=== PATIENT | female | born 1950 | race Caucasian/White ===

== ENCOUNTER 2021-01-25 07:16 | Observation (INO) ==
[2021-01-25] MEDS ORDERED: ASPIRIN 81 MG CHEW PO STA (07:36)
--- NOTE | 2021-01-25 07:40 | Emergency Department Note ---
Impression & Plan GARCIA (dyspnea on exertion), Exertional chest pain ED Provider Note Name: DIEGO TAMEZ Age: 70 Sex: F Arrives Via: Walk-In Informant: Patient ED Provider: Alec Fry MD Chief Complaint: Chest Pain Impression: As Per Impressions above Medical Decision Making: Pleasant 70 yr old female without PMH though extensive family CAD history, arrives for evaluation of 2 days chest pain and dyspnea on exertion with positive troponin at Outpatient clinic yesterday. Feeling well now without complaints. EKG without acute ischemia, no shortness of breath and appears well. Vitals mild tachy otherwise OK. CXR clear, labs unremarkable, including trop which is negative. I do not feel this is dissection nor PE at this time. Given ASA for cardiac protection and hospitalist consulted given history, age and elevated troponin yesterday. Prior Medical Record and Triage/Nursing Notes reviewed by Me Additional history obtained from chart Differentials:Cardiac ischemia, aortic dissection, pulmonary embolism, pneumothorax, pneumonia, pericarditis, myocarditis, esophageal rupture, GERD, cholecystitis, pancreatitis, musculoskeletal, as well as other pathologies. Vital Signs: reviewed and remarkable for HTN Interventions: saline lock, asa 324mg po Labs:Reviewed and remarkable for no significant abnormalities Imaging:X ray results are stated below per my interpretation: Chest: 1 view: No infiltrate, no effusion, normal cardiac border. EKG:Per My Interpretation: Indication Chest Pain: Sinus 78 bpm, qtc 419 with PACs. No Ischemia. Compared to EKG 10/03/15, no significant changes. Cardiac/Tele Monitoring: Cardiac Monitoring: An Order was placed for continuous cardiac monitoring. The monitor shows a rate of 70 with a normal sinus rhythm. Consults:Dr Agustin Darden Hospitalist Plan: Disposition:Hospitalization. Condition: Good History of Present Illness:70 yr old female arrives for evaluation of chest pains. Patient notes she was walking 2 days ago and started having chest tightness. Notes assoicated diaphoresis, palpitations, weakness, and near syncope. No shortness of breath, nausea, vomiting, leg swelling, rashes, abdominal pain, back pain, radiation of pain, fevers, chills, nor other symptoms. No falls, trauma, injuries. No medications taken for this. Exertion makes worse, rest makes better. Stress Test 2019 was reported normal. No history heart cath. Father with CAD starting age 34yrs. Patient had labs at PCP office yesterday which were remarkable for positive troponin. Patient states she feels well currently sitting in bed. ROS: See above HPI for pertinent positives & negatives. A total of 10 systems reviewed and were otherwise negative. 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 EYES: No scleral icterus, unremarkable pupils. ENT: Mucous membranes moist, no nasal congestion. NECK: No masses appreciated, nomeningismus, trachea is midline. RESPIRATORY: No dyspnea. Clear to auscultation and equal bilaterally. No wheeze, no rhonchi. CARDIOVASCULAR: Regular rate and rhythm.No murmurs, rubs, gallops appreciated. GASTROINTESTINAL: Abdomen soft, non-tender, no peritonitis.Bowel sounds positive.No masses appreciated. BACK: No midline tenderness, no CVA tenderness EXTREMITIES: Normal motion all extremities, no cyanosis, no edema. NEUROLOGIC: Alert and oriented, no acute motor or sensory deficits, no focal weakness, cranial nerves grossly intact. SKIN: No rash, no jaundice, no diaphoresis. PSYCH: Appropriate GCS: 15 ED Course: Times/Reassessments: Stable, feeling well no distress Alec Fry MD Past Med/Surg History Medical History Anxiety Chronic sinusitis Diverticulitis Surgical History H/O section History of appendectomy Performed during right colectomy History of cholecystectomy Performed during right colectomy S/P colon resection Right colectomy secondary to diverticulitis Family History Father Coronary heart disease CABG in 70s AAA (abdominal aortic aneurysm) Mother Throat cancer Sister Diabetes Social History Smoking Status: Never smoker Second Hand Exposure: Yes; Hx Alcohol Use: Yes Alcohol type Comment: very rare Alcohol Intake Frequency: Never Hx Substance Use: No Preferred Language: Lao Communication Ability: Effective marital status: current occupational status: retired Feels Safe at Home: Yes Allergies Allergies Allergy/AdvReac Type Severity Reaction Status Date / Time bacitracin Allergy Intermediate SEVERE Verified 01/25/21 08:51 SWELLING neomycin Allergy Intermediate SEVERE Verified 01/25/21 08:51 SWELLING polymyxin B Allergy Intermediate SEVERE Verified 01/25/21 08:51 SWELLING aspirin Allergy Unknown TINGLES Unverified 01/25/21 08:51 ibuprofen Allergy Unknown TINGLES Unverified 01/25/21 08:51 Home Meds Home Medications Medication Instructions Recorded Confirmed calcium carbonate 600 mg (1,500 1 tab PO QAM 01/25/21 01/25/21 mg)-vitamin D3 200 unit tablet (Calcium 600 + D(3)) fluticasone propionate 50 2 spray INTRANASAL DAILY PRN 01/25/21 01/25/21 mcg/actuation nasal spray,suspension [id number] 0.4 mg-calcium 162 1 tab PO QAM 01/25/21 01/25/21 mg-iron 18 im-[id number]-[id number] tablet omeprazole 10 mg capsule,delayed 10 mg PO DAILY PRN 01/25/21 01/25/21 release Previous Rx's Medication Instructions Recorded lisinopril 10 mg tablet 10 mg PO DAILY #14 tab 01/25/21 Results & Data (ED) Vital Signs Vital Signs - 24 hr 01/25/21 07:19 01/25/21 08:09 Temperature 36.7 C Temperature Source Temporal Artery Scan Pulse Rate 94 H Pulse Rate [Apical] 86 Respiratory Rate 18 18 Respiratory Effort / Characteristics Non-Labored Spontaneous Respiratory Depth Normal Respiratory Pattern Regular Blood Pressure 153/95 H Blood Pressure [Right Arm] 178/90 H Blood Pressure Mean 114 Blood Pressure Mean [Right Arm] 119 Blood Pressure Position Sitting Pulse Oximetry 98 98 Oxygen Delivery Method Room Air Room Air Sepsis Recent Fever Within 48 Hours No Sepsis New/Unexplained Change in Mental Status No Sepsis Action Taken by Nursing No Action Required Laboratory Data Result diagrams: 01/25/21 08:15 01/25/21 08:15 Lab Results 01/25/21 01/25/21 01/25/21 Range/Units 08:09 08:09 08:15 WBC 6.97 (4.8-10.8) K/uL RBC 4.67 (4.2-5.4) M/uL Hgb 14.5 (12.0-16.0) g/dL Hct 43.2 (37-47) % MCV 92.5 (80-100) fL MCH 31.0 (25-34) pg MCHC 33.6 (32-36) g/dL RDW Std Deviation 45.3 (36.4-46.3) fL RDW Coeff of Jeimy 13.4 (11.5-14.5) % Plt Count 158 (130-400) K/uL MPV 9.3 (7.4-10.4) fL Immature Gran % (Auto) 0.1 % Neut % (Auto) 81.3 % Lymph % (Auto) 12.8 % [place] % (Auto) 4.9 % Eos % (Auto) 0.6 % Baso % (Auto) 0.3 % Neut # (Auto) 5.67 (1.4-6.5) K/uL Lymph # (Auto) 0.89 L (1.2-3.4) K/uL [place] # (Auto) 0.34 (0.11-0.59) K/uL Eos # (Auto) 0.04 (0-0.5) K/uL Baso # (Auto) 0.02 (0-0.2) K/uL Immature Gran # (Auto) 0.01 (0.00-0.02) K/uL Sodium (136-145) mmol/L Potassium (3.5-5.1) mmol/L Chloride (98-107) mmol/L Carbon Dioxide (21-32) mmol/L Anion Gap (3-11) BUN (7-18) mg/dl Creatinine (0.6-1.2) mg/dl Est Cr Clr Drug Dosing ml/min Est GFR ( Amer) ml/min Est GFR (Non-Af Amer) ml/min BUN/Creatinine Ratio (10-20) Glucose (70-99) mg/dl Calcium (8.5-10.1) mg/dl Total Bilirubin (0.2-1) mg/dl Direct Bilirubin (0-0.2) mg/dl AST (15-37) U/L ALT (12-78) U/L Alkaline Phosphatase (45-117) U/L Troponin I (0-0.045) ng/ml Total Protein (6.4-8.2) gm/dl Albumin (3.4-5.0) gm/dl COVID-19 Eval Order Covid19 at [facility] SARS-CoV-2 (PCR) NEGATIVE (Negative) 01/25/21 Range/Units 08:15 WBC (4.8-10.8) K/uL RBC (4.2-5.4) M/uL Hgb (12.0-16.0) g/dL Hct (37-47) % MCV (80-100) fL MCH (25-34) pg MCHC (32-36) g/dL RDW Std Deviation (36.4-46.3) fL RDW Coeff of Jeimy (11.5-14.5) % Plt Count (130-400) K/uL MPV (7.4-10.4) fL Immature Gran % (Auto) % Neut % (Auto) % Lymph % (Auto) % [place] % (Auto) % Eos % (Auto) % Baso % (Auto) % Neut # (Auto) (1.4-6.5) K/uL Lymph # (Auto) (1.2-3.4) K/uL [place] # (Auto) (0.11-0.59) K/uL Eos # (Auto) (0-0.5) K/uL Baso # (Auto) (0-0.2) K/uL Immature Gran # (Auto) (0.00-0.02) K/uL Sodium 140 (136-145) mmol/L Potassium 3.3 L (3.5-5.1) mmol/L Chloride 108 H (98-107) mmol/L Carbon Dioxide 27 (21-32) mmol/L Anion Gap 5.0 (3-11) BUN 26 H (7-18) mg/dl Creatinine 0.87 (0.6-1.2) mg/dl Est Cr Clr Drug Dosing 60.2 ml/min Est GFR ( Amer) 79.3 ml/min Est GFR (Non-Af Amer) 68.5 ml/min BUN/Creatinine Ratio 30.4 H (10-20) Glucose 109 H (70-99) mg/dl Calcium 9.2 (8.5-10.1) mg/dl Total Bilirubin 0.4 (0.2-1) mg/dl Direct Bilirubin < 0.1 (0-0.2) mg/dl AST 24 (15-37) U/L ALT 25 (12-78) U/L Alkaline Phosphatase 60 (45-117) U/L Troponin I < 0.015 (0-0.045) ng/ml Total Protein 8.1 (6.4-8.2) gm/dl Albumin 3.9 (3.4-5.0) gm/dl COVID-19 Eval Order SARS-CoV-2 (PCR) (Negative) Administered Medications Discontinued Medications Aspirin (Aspirin 81 Mg Chew) 324 mg PO NOW STA Stop: 01/25/21 07:37 Last Admin: 01/25/21 08:33 Dose: 324 mg Documented by: [id number] Ioversol (Optiray 320 125ml) 119 ml IV ONCE ONE Stop: 01/25/21 14:19 Last Admin: 01/25/21 14:19 Dose: 119 ml Documented by: [id number] Lisinopril (Lisinopril 5 Mg Tab) 10 mg PO NOW STA Stop: 01/25/21 13:36 Last Admin: 01/25/21 14:53 Dose: 10 mg Documented by: [id number] Potassium Chloride (Potassium Chloride Crtab 20 Meq Tabcr) 40 meq PO NOW STA Stop: 01/25/21 10:20 Last Admin: 01/25/21 11:14 Dose: 40 meq Documented by: [id number] Imaging Data Radiologist's Impression: Chest X-Ray 01/25/21 07:36 XR chest 1V portable HISTORY: Atypical chest pain. Palpitations. COMPARISON: Chest 10/03/2015. FINDINGS: Small linear density at the left lung base favors atelectasis or scarring. Otherwise, the lungs are clear. The heart is normal in size. No pleural effusions. No pneumothorax. IMPRESSION: No acute process. ACT 112: Negative or not required by law. Electronically signed by: Yohan Hernandez M.D. 01/25/2021 7:57 AM Discharge Plan Visit Data Chief Complaint: Cardiac Assessment Stated Complaint: NOT FEELING WELL,HEART ISSUES,ELEVATED ENZYMES ED Provider: Alec Fry Discharge Problem: GARCIA (dyspnea on exertion), Exertional chest pain Condition: Good
--- NOTE | 2021-01-25 07:58 | XRay Report ---
XR chest 1V portable HISTORY: Atypical chest pain. Palpitations. COMPARISON: Chest 10/03/2015. FINDINGS: Small linear density at the left lung base favors atelectasis or scarring. Otherwise, the l ungs are clear. The heart is normal in size. No pleural effusions. No pneumothorax. IMPRESSION: No acute process. ACT 112: Negative or not required by law. Electronically signed by: Yohan Hernandez M.D. 01/25/2021 7:57 AM
[2021-01-25 08:32] LABS: Basophils # (auto) 0.02 K/uL (0-0.2); Basophils % (auto) 0.3 %; Eosinophils # (auto) 0.04 K/uL (0-0.5); Eosinophils % (auto) 0.6 %; Hematocrit (blood only) 43.2 % (37-47); Hemoglobin 14.5 g/dL (12.0-16.0); Immature Granulocytes # (auto) 0.01 K/uL (0.00-0.02); Immature Granulocytes % (auto) 0.1 %; Lymphocytes # (auto) 0.89 K/uL (1.2-3.4); Lymphocytes % (auto) 12.8 %; Mean Corpuscular Hgb Conc 33.6 g/dL (32-36); Mean Corpuscular Volume 92.5 fL (80-100); Mean Platelet Volume 9.3 fL (7.4-10.4); Monocytes # (auto) 0.34 K/uL (0.11-0.59); Monocytes % (auto) 4.9 %; Neutrophils # (auto) 5.67 K/uL (1.4-6.5); Neutrophils % (auto) 81.3 %; Platelet Count 158 K/uL (130-400); RDW Coefficient of Variation 13.4 % (11.5-14.5); RDW Standard Deviation 45.3 fL (36.4-46.3); Red Blood Count 4.67 M/uL (4.2-5.4); White Blood Count 6.97 K/uL (4.8-10.8)
[2021-01-25 08:51] LABS: Alanine Aminotransferase 25 U/L (12-78); Albumin Level 3.9 gm/dl (3.4-5.0); Aspartate Aminotransferase 24 U/L (15-37); BUN Creatinine Ratio 30.4 (10-20); Bilirubin Direct < 0.1 mg/dl (0-0.2); Blood Urea Nitrogen 26 mg/dl (7-18); Calcium 9.2 mg/dl (8.5-10.1); Carbon Dioxide 27 mmol/L (21-32); Chloride 108 mmol/L (98-107); Creatinine Clr Calc Pharmacy 60.2 ml/min; Est GFR (African American) 79.3 ml/min; Est GFR (Non-African American) 68.5 ml/min; Glucose 109 mg/dl (70-99); Potassium 3.3 mmol/L (3.5-5.1); Sodium 140 mmol/L (136-145)
[2021-01-25 08:58] LABS: Alkaline Phosphatase 60 U/L (45-117); Bilirubin,Total 0.4 mg/dl (0.2-1); Total Protein 8.1 gm/dl (6.4-8.2); Troponin I < 0.015 ng/ml (0-0.045)
--- NOTE | 2021-01-25 10:15 | History & Physical Report ---
Date of Service January 25, 2021 Assessment & Plan (1) Left chest pressure: (2) GARCIA (dyspnea on exertion): (3) Elevated blood pressure reading: (4) Hypokalemia: Plan: This is a 70-year-old female who has significant past medical history of situational elevated blood pressure, chronic sinusitis, anxiety, diverticulosis with history of right colectomy who presents to ED secondary to chest pain and dyspnea on exertion on and off x2 days. Pt w/o significant risk factors for CAD, +FH; however in father and not until 70s and he was a smoker. Her blood pressure is elevated in ED today, for my eval it was 152/81, 141/80 and 151/80. She has a blood pressure cuff at home which she continues to monitor her blood pressure. Her blood pressure has been variable at home running from 130 systolic to 190 systolic. Has been variable in clinic as well but not yet st arted on antihypertensive. Left chest pressure GARCIA admit to tele under observation EKG, trop WNL pt had elevated troponin T in clinic yesterday consult cardiology for eval for stress test, last 2019, WNL EF 55-60%, grade 1 diastolic dysfunction Stress test negative for inducible ischemia Ddimer elevated, CTA chest and doppler negativeo lyme negative, anaplasma pending cycle trops fasting lipid panel, a1c to remain hospitalized overnight for iv hydration in setting of contrast, d/c in a.m. Elevated ddimer cta and doppler negative Hypertension Pt BP readings at home 130s-150s, clinic variable 120s-150 anxiety may be contributing will start low dose lisinopril 10mg daily, encourage close BP monitor will need repeat bmp in 1 week for monitor renal function Hypokalemia K 3.3 replace monitor DVT ppx: SQ lovenox Dispo: obs tele, d/c to home in a.m. PCP: Asiya FULL CODE PT was seen and examined in collaboration with Dr. Velez, please see addendum History of Present Illness Chief Complaint: Chest pain and dyspnea on exertion off and on x2 days. Primary Care Provider: Oswald Braden DO This is a 70-year-old female who has significant past medical history of situational elevated blood pressure, chronic sinusitis, anxiety, diverticulosis with history of right colectomy who presents to ED secondary to chest pain and dyspnea on exertion on and off x2 days. Symptoms initially started on Saturday. She went for a 3.1 mile walk. During the walk she started to feel unwell and fatigued. It required her to sit and rest during her walk which was unusual. She also felt sweaty. At the end of her walk she developed left-sided chest pressure that lasted for a few minutes and resolved with rest. Chest pressure was nonradiating, but was associated with mild shortness of breath and sweating. She denies feeling nauseated. Symptoms resolved but she continued to just feel unwell and her body felt, "tired." Yesterday she saw her PCP and had blood work drawn. Results returned this morning which revealed an elevated troponin T and she was referred to the ER for further evaluation. She states yesterday when at [facility] she was walking up the stairs for lab work and she became extremely short of breath, sweaty and felt like her heart was racing. It was very unusual for her to become short of breath after climbing 1 flight of stairs. She was able to do her gardening yesterday without any difficulty. Currently she feels at her baseline except for overall feeling fatigued. She denies any recent illness and is vaccinated for COVID-19. She denies fever, chills, sweats, lightheadedness, dizziness, syncope, cough, hemoptysis, URI symptoms, nausea, vomiting, abdominal pain. She did have an episode of loose stool yesterday but otherwise denies jessica diarrhea. She denies any prior history of high cholesterol, diabetes or history of heart disease. She did have a stress test in 2019 which was unremarkable. She denies recent travel or known tick/insect bite. She feels she is note in good shape, but does walk 3.1 miles ~ twice weekly. She did states her father was diagnosed with cardiac, "insufficiency," in his late 30s. When he was in his 70s he ended up undergoing triple bypass as well as an abdominal aortic aneurysm repair. He was a smoker. She denies any tobacco abuse, but admits to passive smoking exposure. She admits to very minimal alcohol use. 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 In ED patient made hemodynamically stable although her blood pressure was elevated. During my evaluation her blood pressure was 152/81. Her CBC and CMP was generally unremarkable except for mild lymphopenia, low potassium at 3.8, elevated BUN at 26 and glucose at 109. Allergies Allergy/AdvReac Type Severity Reaction Status Date / Time bacitracin Allergy Intermediate SEVERE Verified 01/25/21 08:51 SWELLING neomycin Allergy Intermediate SEVERE Verified 01/25/21 08:51 SWELLING polymyxin B Allergy Intermediate SEVERE Verified 01/25/21 08:51 SWELLING aspirin Allergy Unknown TINGLES Unverified 01/25/21 08:51 ibuprofen Allergy Unknown TINGLES Unverified 01/25/21 08:51 Home Medications Medication Instructions Recorded Confirmed Type calcium carbonate 600 mg (1,500 1 tab PO QAM 01/25/21 01/25/21 History mg)-vitamin D3 200 unit tablet (Calcium 600 + D(3)) fluticasone propionate 50 2 spray INTRANASAL DAILY PRN 01/25/21 01/25/21 History mcg/actuation nasal spray,suspension lisinopril 10 mg tablet 10 mg PO DAILY #14 tab 01/25/21 Rx [id number] 0.4 mg-calcium 162 1 tab PO QAM 01/25/21 01/25/21 History mg-iron 18 [id number] tablet omeprazole 10 mg capsule,delayed 10 mg PO DAILY PRN 01/25/21 01/25/21 History release Past Med/Surg History Medical History Anxiety Chronic sinusitis Diverticulitis Surgical History H/O section History of appendectomy Performed during right colectomy History of cholecystectomy Performed during right colectomy S/P colon resection Right colectomy secondary to diverticulitis Family History Father Coronary heart disease CABG in 70s AAA (abdominal aortic aneurysm) Mother Throat cancer Sister Diabetes Social History Smoking Status: Never smoker Second Hand Exposure: No; Do You Dip or Chew Tobacco: No; Tobacco Cessation Education Requested by Patient: No Hx Alcohol Use: Yes Alcohol type Comment: very rare Alcohol Intake Frequency: Never Hx Substance Use: No Preferred Language: Venezuelan Communication Ability: Effective Braille Teacher Required: No Beliefs That Will Affect Care: None marital status: Current Living Situation: Alone current occupational status: retired Feels Safe at Home: Yes Safety Concerns: Feels Safe At This Time Assistive Devices: Glasses Review of Systems Review of Systems: All systems reviewed & are unremarkable except as noted in HPI & below Physical Exam Physical Exam: Constitutional: WD/WN, vitals as above, NAD, sitting up in bed, pleasant, conversing easily Head: Normocephalic, Atraumatic Eyes: PERRL, conjunctivae normal, anicteric sclerae ENMT: external ear and nose normal, oropharynx normal Neck: trachea midline, no thyromegaly normal visual inspection, no carotid bruits Respiratory: normal respiratory effort, lungs clear to auscultation, no wheeze, rales, rhonchi. Normal insp/exp effort, no accessory muscle use Cardiovascular: RRR, no murmur, no edema Vessels: no JVD or carotid bruit Chest: normal inspection of chest Abdomen: normal bowel sounds, soft, nontender, no hepatosplenomegaly Musculoskeletal: no cyanosis or clubbing, extremities motor strength 5/5 Skin: no rashes, warm and dry normal turgor Neurologic: PERRL, EOMI, accommodation nl, no face palsy, no dysarthria CN's II-XI intact bilaterally and moves all extremities Psychiatric: A+Ox3, euthymic affect Lymphatic: no cervical or axillary lymphadenopathy : deferred Results & Data Results & Data ([facility]) Vital Signs (Past 12 Hours) Vital Signs Temp Pulse Pulse Resp BP BP Pulse Ox 01/25/21 08:09 86 18 178/90 H 98 01/25/21 07:19 36.7 C 94 H 18 153/95 H 98 Diagnostic Findings Chest X-Ray 01/25/21 07:36 XR chest 1V portable HISTORY: Atypical chest pain. Palpitations. COMPARISON: Chest 10/03/2015. FINDINGS: Small linear density at the left lung base favors atelectasis or scarring. Otherwise, the lungs are clear. The heart is normal in size. No pleural effusions. No pneumothorax. IMPRESSION: No acute process. ACT 112: Negative or not required by law. Electronically signed by: Yohan Hernandez M.D. 01/25/2021 7:57 AM Medications Administered Medication List Discontinued Medications Aspirin (Aspirin 81 Mg Chew) 324 mg PO NOW STA Stop: 01/25/21 07:37 Last Admin: 01/25/21 08:33 Dose: 324 mg Documented by: [id number] ECG Rate (beats per minute): 78 Rhythm: normal sinus Findings: + PAC COVID-19 Results Results COVID-19 Adm Lab Results: RBC 4.67 M/uL (4.2-5.4) 01/25/21 WBC 6.97 K/uL (4.8-10.8) 01/25/21 Hgb 14.5 g/dL (12.0-16.0) 01/25/21 Hct 43.2 % (37-47) 01/25/21 Plt Count 158 K/uL (130-400) 01/25/21 Neutrophils (%) (Auto) 81.3 % 01/25/21 Lymphocytes (%) (Auto) 12.8 % 01/25/21 Monocytes # (Auto) 0.34 K/uL (0.11-0.59) 01/25/21 Eosinophils # (Auto) 0.04 K/uL (0-0.5) 01/25/21 Immature Granulocyte % (Auto) 0.1 % 01/25/21 Neutrophils # (Auto) 5.67 K/uL (1.4-6.5) 01/25/21 Lymphocytes # (Auto) 0.89 K/uL (1.2-3.4) L 01/25/21 Monocytes # (Auto) 0.34 K/uL (0.11-0.59) 01/25/21 Eosinophils # (Auto) 0.04 K/uL (0-0.5) 01/25/21 Basophils # (Auto) 0.02 K/uL (0-0.2) 01/25/21 Immature Granulocyte # (Auto) 0.01 K/uL (0.00-0.02) 01/25/21 Na 140 mmol/L (136-145) 01/25/21 K 3.3 mmol/L (3.5-5.1) L 01/25/21 Cl 108 mmol/L (98-107) H 01/25/21 CO2 27 mmol/L (21-32) 01/25/21 Anion Gap 5.0 (3-11) 01/25/21 BUN 26 mg/dl (7-18) H 01/25/21 Creatinine 0.87 mg/dl (0.6-1.2) 01/25/21 BUN/Creatinine Ratio 30.4 (10-20) H 01/25/21 Glucose Level 109 mg/dl (70-99) H 01/25/21 Ca 9.2 mg/dl (8.5-10.1) 01/25/21 Total Bilirubin 0.4 mg/dl (0.2-1) 01/25/21 Direct Bilirubin < 0.1 mg/dl (0-0.2) 01/25/21 AST/SGOT 24 U/L (15-37) 01/25/21 ALT/SGPT 25 U/L (12-78) 01/25/21 Alkaline Phosphatase 60 U/L (45-117) 01/25/21 Total Protein 8.1 gm/dl (6.4-8.2) 01/25/21 Albumin 3.9 gm/dl (3.4-5.0) 01/25/21 Troponin I < 0.015 ng/ml (0-0.045) 01/25/21 D-Dimer 1720 ug/L FEU (0-500) H* 01/25/21 COVID-19 PCR NEGATIVE (Negative) 01/25/21 Chest X-Ray 01/25/21 Code Status & VTE Plan Code Status FULL CODE VTE Prophylaxis Plan VTE Prophylaxis will be ordered: Yes Supervising Physician Co-Signing Physician Notes 70-year-old female who has significant past medical history of situational elevated blood pressure, chronic sinusitis, anxiety, diverticulosis with history of right colectomy who presents to ED 01/25 secondary to chest pain and dyspnea on exertion on and off x2 days. Patient had elevated D-dimer on presentation. Underwent CTA chest and stress echo. Both negative. We will put her on gentle normal saline hydration [renal protective for contrast exposure] with as needed blood pressure medication. Patient was also found to have elevated blood pres sure at presentation. Patient started on lisinopril. We will continue to monitor. Upon examination: GENERAL: Alert and oriented x3. NAD, on RA. HEENT: No pallor, no icterus. Pupils equal, round and reactive to light. Oral mucosa moist. NECK: No JVD, no neck masses. HEART: S1 and S2 heard. Regular rate and rhythm. Systolic murmur over the aortic area. no gallop. RESPIRATORY SYSTEM: Normal AP diameter. No accessory muscle use. No wheezing, no crackles. ABDOMEN: Soft, bowel sounds present, nontender, no distention. CENTRAL NERVOUS SYSTEM: Alert and oriented x3. No facial droop. Speech is clear. Obeys simple commands. Moves extremities. EXTREMITIES: No edema, no erythema seen. I have seen and examined the patient and have discussed the case with the provider above. I agree with the assessment and plan as stated.
[2021-01-25] MEDS ORDERED: POTASSIUM CHLORIDE CRTAB 20 MEQ TABCR PO STA (10:19)
[2021-01-25 11:08] LABS: D Dimer 1720 ug/L FEU (0-500)
[2021-01-25 11:54] LABS: Lyme Ab IgG w/WB Rflx Negative (Negative); Lyme Ab IgM w/WB Rflx Negative (Negative)
--- NOTE | 2021-01-25 13:21 | Cardiology Consultation ---
Date of Consultation January 25, 2021 Assessment & Plan (1) Chest pain: (2) Hypertension: nonischemic exercise stress echocardiogram hypertensive bp response to exercise no cardiac source for discomfort found BP treatment has already been started and I recommend she follow up with PCP to further monitor and treat no further cardiac testing necessary ok to d/c to home from cardiac standpoint History of Present Illness Reason for Consultation: Chest pain Requesting Physician: Dr. Velez Attending Physician: Rolanda Velez MD History of Present Illness It was my pleasure to see Mrs. Light in cardiac consultation today January 25, 2021. She is a very pleasant 70-year-old woman without significant cardiac history. She presented to [facility] on 01/25/2021 with complaints of chest pain and dyspnea. She states that her symptoms started approximately 2 days prior to presentation. She was on her normal walk when she started feeling well and fatigued. She had to stop and rest which is very unusual for her. At the end of her walk she developed left-sided chest pressure that lasted for several minutes and ultimately resolved with rest. This episode was associated with mild diaphoresis. She continues to feel very tired in the days afterwards and was seen by her PCP at which time a troponin level was drawn was mildly elevated and she was directed to the emergency department. Currently states that she feels tired but otherwise well. She is been significantly hypertensive since admission. Allergies Allergy/AdvReac Type Severity Reaction Status Date / Time bacitracin Allergy Intermediate SEVERE Verified 01/25/21 08:51 SWELLING neomycin Allergy Intermediate SEVERE Verified 01/25/21 08:51 SWELLING polymyxin B Allergy Intermediate SEVERE Verified 01/25/21 08:51 SWELLING aspirin Allergy Unknown TINGLES Unverified 01/25/21 08:51 ibuprofen Allergy Unknown TINGLES Unverified 01/25/21 08:51 Home Medications Medication Instructions Recorded Confirmed Type calcium carbonate 600 mg (1,500 1 tab PO QAM 01/25/21 01/25/21 History mg)-vitamin D3 200 unit tablet (Calcium 600 + D(3)) fluticasone propionate 50 2 spray INTRANASAL DAILY PRN 01/25/21 01/25/21 History mcg/actuation nasal spray,suspension lisinopril 10 mg tablet 10 mg PO DAILY #14 tab 01/25/21 Rx [id number] 0.4 mg-calcium 162 1 tab PO QAM 01/25/21 01/25/21 History mg-iron 18 [id number] tablet omeprazole 10 mg capsule,delayed 10 mg PO DAILY PRN 01/25/21 01/25/21 History release Patient History Medical History Anxiety Chronic sinusitis Diverticulitis Surgical History H/O section History of appendectomy Performed during right colectomy History of cholecystectomy Performed during right colectomy S/P colon resection Right colectomy secondary to diverticulitis Family History Father Coronary heart disease CABG in 70s AAA (abdominal aortic aneurysm) Mother Throat cancer Sister Diabetes Social History Smoking Status: Never smoker Second Hand Exposure: No; Do You Dip or Chew Tobacco: No; Tobacco Cessation Education Requested by Patient: No Hx Alcohol Use: Yes Alcohol type Comment: very rare Alcohol Intake Frequency: Never Hx Substance Use: No Preferred Language: Mongolian Communication Ability: Effective 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 No acute distress. HEENT: Normocephalic, atraumatic. Pupils equal, round and reactive to light and accommodation. Extraocular muscles are intact. Anicteric sclera. Moist mucous membranes. Neck: No JVD. No bruit. Cardiovascular: Regular. No S-4. Normal S-1 and S-2. No S-3. No murmurs, rubs or gallops. Pulmonary: Clear to auscultation bilaterally. No rales, rhonchi, or wheezing. Abdomen: Bowel sounds x 4, soft. No rebound, guarding or tenderness. No organomegaly. Extremities: No clubbing, cyanosis or edema. +2 pedal pulses bilaterally. Skin: Warm and dry. Results & Data ([facility]) Vital Signs (Past 12 Hours) Vital Signs Temp Pulse Pulse Resp BP BP Pulse Ox 01/25/21 08:09 86 18 178/90 H 98 01/25/21 07:19 36.7 C 94 H 18 153/95 H 98
[2021-01-25] MEDS ORDERED: lisinopril 5 MG TAB PO STA (13:35)
[2021-01-25] MEDS ORDERED: OPTIRAY 320 125ml IV ONE (14:18)
--- NOTE | 2021-01-25 14:18 | Ultrasound Report ---
BILATERAL LOWER EXTREMITY VENOUS DOPPLER CLINICAL HISTORY: Elevated d-dimer. COMPARISON STUDY: No previous studies for comparison. TECHNIQUE: Sonography of the deep venous system of the bilateral lower extremities was performed. Co mpression and augmentation were evaluated. FINDINGS: The bilateral common femoral, superficial femoral and popliteal veins were compressible. A ugmentation was normal. Flow was shown within the deep calf vessels. IMPRESSION: No evidence of deep venous thrombus within the bilateral lower extremities. ACT 112: Negative or not required by law. Electronically signed by: Raphael Calderon M.D. 01/25/2021 2:17 PM
--- NOTE | 2021-01-25 14:40 | CT Scan Report ---
CT ANGIOGRAPHY OF THE CHEST, PULMONARY EMBOLUS PROTOCOL CLINICAL HISTORY: Shortness of breath. Elevated d-dimer. COMPARISON STUDY: Chest CT October 03, 2015. Chest radiograph performed earlier today. TECHNIQUE: Following IV administration of 119 mL of Optiray, helical axial images of the chest were o btained utilizing the pulmonary embolus protocol. Maximal intensity projections and sagittal and cor onal reformats were viewed on an independent 3D workstation. IV contrast was administered without co mplication. Automated exposure control was utilized for the study. A dose lowering technique was ut ilized adhering to the principles of ALARA. CT DOSE: 445.59 mGycm FINDINGS: No pulmonary emboli are identified. There is no thoracic aortic dissection. Mild cardiomeg niko is present. There is no pericardial effusion. No enlarged axillary, mediastinal or hilar lymph no luann are present. There is no consolidation to suggest pneumonia. No pneumothorax or pleural effusion is noted. Multinodular thyroid gland is again noted with dominant right lobe thyroid nodule which was previously biopsied. No acute fracture or suspicious lesion is identified within visualized portions of the bony thorax. A suspected left renal cyst is partially imaged. There are multiple hepatic cyst s. IMPRESSION: 1. No pulmonary emboli identified. 2. No acute process within the chest. ACT 112: Negative or not required by law. Electronically signed by: Raphael Calderon M.D. 01/25/2021 2:39 PM
--- NOTE | 2021-01-25 14:43 | Discharge Summary ---
Date of Service January 25, 2021 Admission HPI Per Admitting Provider This is a 70-year-old female who has significant past medical history of situational elevated blood pressure, chronic sinusitis, anxiety, diverticulosis with history of right colectomy who presents to ED secondary to chest pain and dyspnea on exertion on and off x2 days. Symptoms initially started on Saturday. She went for a 3.1 mile walk. During the walk she started to feel unwell and fatigued. It required her to sit and rest during her walk which was unusual. She also felt sweaty. At the end of her walk she developed left-sided chest pressure that lasted for a few minutes and resolved with rest. Chest pressure was nonradiating, but was associated with mild shortness of breath and sweating. She denies feeling nauseated. Symptoms resolved but she continued to just feel unwell and her body felt, "tired." Yesterday she saw her PCP and had blood work drawn. Results returned this morning which revealed an elevated troponin T and she was referred to the ER for further evaluation. She states yesterday when at [facility] she was walking up the stairs for lab work and she became extremely short of breath, sweaty and felt like her heart was racing. It was very unusual for her to become short of breath after climbing 1 flight of stairs. She was able to do her gardening yesterday without any difficulty. Currently she feels at her baseline except for overall feeling fatigued. She denies any recent illness and is vaccinated for COVID-19. She denies fever, chills, sweats, lightheadedness, dizziness, syncope, cough, hemoptysis, URI symptoms, nausea, vomiting, abdominal pain. She did have an episode of loose stool yesterday but otherwise denies jessica diarrhea. She denies any prior history of high cholesterol, diabetes or history of heart disease. She did have a stress test in 2019 which was unremarkable. She denies recent travel or known tick/insect bite. She feels she is note in good shape, but does walk 3.1 miles ~ twice weekly. She did states her father was diagnosed with cardiac, "insufficiency," in his late 30s. When he was in his 70s he ended up undergoing triple bypass as well as an abdominal aortic aneurysm repair. He was a smoker. She denies any tobacco abuse, but admits to passive smoking exposure. She admits to very minimal alcohol use. 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 In ED patient made hemodynamically stable although her blood pressure was elevated. During my evaluation her blood pressure was 152/81. Her CBC and CMP was generally unremarkable except for mild lymphopenia, low potassium at 3.8, elevated BUN at 26 and glucose at 109. Admission Exam Per Admitting Provider Physical Exam: Constitutional: WD/WN, vitals as above, NAD, sitting up in bed, pleasant, conversing easily Head: Normocephalic, Atraumatic Eyes: PERRL, conjunctivae normal, anicteric sclerae ENMT: external ear and nose normal, oropharynx normal Neck: trachea midline, no thyromegaly normal visual inspection, no carotid bruits Respiratory: normal respiratory effort, lungs clear to auscultation, no wheeze, rales, rhonchi. Normal insp/exp effort, no accessory muscle use Cardiovascular: RRR, no murmur, no edema Vessels: no JVD or carotid bruit Chest: normal inspection of chest Abdomen: normal bowel sounds, soft, nontender, no hepatosplenomegaly Musculoskeletal: no cyanosis or clubbing, extremities motor strength 5/5 Skin: no rashes, warm and dry normal turgor Neurologic: PERRL, EOMI, accommodation nl, no face palsy, no dysarthria CN's II-XI intact bilaterally and moves all extremities Psychiatric: A+Ox3, euthymic affect Lymphatic: no cervical or axillary lymphadenopathy : deferred Principal Diagnosis Hypertension Hypokalemia Discharge Exam Constitutional: WD/WN, vitals as above, NAD, sitting up in bed, pleasant, conversing easily Head: Normocephalic, Atraumatic Eyes: PERRL, conjunctivae normal, anicteric sclerae ENMT: external ear and nose normal, oropharynx normal Neck: trachea midline, no thyromegaly normal visual inspection, no carotid bruits Respiratory: normal respiratory effort, lungs clear to auscultation, no wheeze, rales, rhonchi. Normal insp/exp effort, no accessory muscle use Cardiovascular: RRR, no murmur, no edema Vessels: no JVD or carotid bruit Chest: normal inspection of chest Abdomen: normal bowel sounds, soft, nontender, no hepatosplenomegaly Musculoskeletal: no cyanosis or clubbing, extremities motor strength 5/5 Skin: no rashes, warm and dry normal turgor Neurologic: PERRL, EOMI, accommodation nl, no face palsy, no dysarthria CN's II-XI intact bilaterally and moves all extremities Psychiatric: A+Ox3, euthymic affect Lymphatic: no cervical or axillary lymphadenopathy : deferred Discharge Data Allergies Allergy/AdvReac Type Severity Reaction Status Date / Time bacitracin Allergy Intermediate SEVERE Verified 01/25/21 08:51 SWELLING neomycin Allergy Intermediate SEVERE Verified 01/25/21 08:51 SWELLING polymyxin B Allergy Intermediate SEVERE Verified 01/25/21 08:51 SWELLING aspirin Allergy Unknown TINGLES Unverified 01/25/21 08:51 ibuprofen Allergy Unknown TINGLES Unverified 01/25/21 08:51 Consultations Cardiology Consult: (1) Chest pain: (2) Hypertension: nonischemic exercise stress echocardiogram hypertensive bp response to exercise no cardiac source for discomfort found BP treatment has already been started and I recommend she follow up with PCP to further monitor and treat no further cardiac testing necessary ok to d/c to home from cardiac standpoint Ordered Studies Chest X-Ray 01/25/21 07:36 XR chest 1V portable HISTORY: Atypical chest pain. Palpitations. COMPARISON: Chest 10/03/2015. FINDINGS: Small linear density at the left lung base favors atelectasis or scarring. Otherwise, the lungs are clear. The heart is normal in size. No pleural effusions. No pneumothorax. IMPRESSION: No acute process. ACT 112: Negative or not required by law. Electronically signed by: Yhoan Hernandez M.D. 01/25/2021 7:57 AM Chest CTA 01/25/21 11:32 CT ANGIOGRAPHY OF THE CHEST, PULMONARY EMBOLUS PROTOCOL CLINICAL HISTORY: Shortness of breath. Elevated d-dimer. COMPARISON STUDY: Chest CT October 03, 2015. Chest radiograph performed earlier today. TECHNIQUE: Following IV administration of 119 mL of Optiray, helical axial images of the chest were obtained utilizing the pulmonary embolus protocol. Maximal intensity projections and sagittal and coronal reformats were viewed on an independent 3D workstation. IV contrast was administered without complication. Automated exposure control was utilized for the study. A dose lowering technique was utilized adhering to the principles of ALARA. CT DOSE: 445.59 mGycm FINDINGS: No pulmonary emboli are identified. There is no thoracic aortic dissection. Mild cardiomegaly is present. There is no pericardial effusion. No enlarged axillary, mediastinal or hilar lymph nodes are present. There is no consolidation to suggest pneumonia. No pneumothorax or pleural effusion is noted. Multinodular thyroid gland is again noted with dominant right lobe thyroid nodule which was previously biopsied. No acute fracture or suspicious lesion is identified within visualized portions of the bony thorax. A suspected left renal cyst is partially imaged. There are multiple hepatic cysts. IMPRESSION: 1. No pulmonary emboli identified. 2. No acute process within the chest. ACT 112: Negative or not required by law. Electronically signed by: Raphael Calderon M.D. 01/25/2021 2:39 PM Venous Doppler Study 01/25/21 11:41 BILATERAL LOWER EXTREMITY VENOUS DOPPLER CLINICAL HISTORY: Elevated d-dimer. COMPARISON STUDY: No previous studies for comparison. TECHNIQUE: Sonography of the deep venous system of the bilateral lower extremities was performed. Compression and augmentation were evaluated. FINDINGS: The bilateral common femoral, superficial femoral and popliteal veins were compressible. Augmentation was normal. Flow was shown within the deep calf vessels. IMPRESSION: No evidence of deep venous thrombus within the bilateral lower extremities. ACT 112: Negative or not required by law. Electronically signed by: Raphael Calderon M.D. 01/25/2021 2:17 PM Hospital Course (1) Left chest pressure: (2) GARCIA (dyspnea on exertion): (3) Elevated blood pressure reading: (4) Hypokalemia: This is a 70-year-old female who has significant past medical history of situational elevated blood pressure, chronic sinusitis, anxiety, diverticulosis with history of right colectomy who presents to ED secondary to chest pain and dyspnea on exertion on and off x2 days. Pt w/o significant risk factors for CAD, +FH; however in father and not until 70s and he was a smoker. Her blood pressure is elevated in ED today, for my eval it was 152/81, 141/80 and 151/80. She has a blood pressure cuff at home which she continues to monitor her blood pressure. Her blood pressure has been variable at home running from 130 systolic to 190 systolic. Has been variable in clinic as well but not yet started on antihypertensive. She was seen and evaluated in clinic on day prior and was found to have an elevated troponin T and was referred to ED. She was admitted under hospitalist service. Cardiology was consulted and she underwent exercise stress test which was negative for inducible ischemia. She did have a hypertensive response. She remained hypertensive during hospitalization and was started on lisinopril 10 mg daily. Her potassium was low and this was replaced. She did have elevated D-dimer on 1720. A CTA of chest was performed which was negative for PE and bilateral lower extremity Doppler which was negative. She was started on lisinopril 10mg once daily for HTN. A follow up appt was made for the patient for 01/30/21 for blood pressure recheck and follow up BMP due to initiation of lisinopril. Discharge Plan Discharge Items Patient Disposition: Home - Self-Care Reason For Visit: chest pain Discharge Diagnosis: High Blood Pressure Low Potassium Condition on Discharge: Good Activity: As commented below Activity Comment: Wait until after follow up with PCP to resume physical activity Lifting: Wait until after follow-up appointment Bathing: No limitations Exercise/Sports: Wait until after follow-up appointment Driving/Machine Use: No limitations Non-emergency contact: Primary Care Provider Call non-emergency contact if: you have any medication questions, your symptoms worsen, your pain is not controlled, your pain is worsening, your pain is unusual for you, your pain is concerning for you and you have a fever Follow-up/Referrals: Oswald Braden DO [Primary Care Provider] - 01/30/21 11:20 am Diet: Regular Addtl Attending Provider Instructions: MEDICATION CHANGES: You were started on medication for high blood pressure *Lisinopril 10mg by mouth once daily SUMMARY OF TEST RESULTS/Hospitalization: You were admitted to hospital secondary to shortness of breath, fatigue, chest pressure and sweating. You underwent a stress test by our cardiology and it was negative. Your blood pressure was high during your stay as well as during your stress test. You were started on a medication to help lower your blood pressure, Lisinopril. Your potassium was low and this was replaced. A CT scan of your chest was performed Ultrasounds of your legs were performed and ruled out You were tested for Lyme disease which was negative PENDING TEST RESULTS: Anaplasma blood test for tick borne illness is pending at discharge RECOMMENDATIONS FOR FOLLOW-UP: Please follow up with your Primary Care Provider on 01/30/21 @ 11:20 a.m., please arrive 15 minutes before your scheduled appointment. Keep a log of your blood pressure & take at least twice daily. Bring this with you to your Primary Care Provider appointment. You will need a repeat BMP at your follow up appointment due to starting a new medication, lisinopril. This will recheck your kidney function and potassium. You will need a refill prescription for your new blood pressure medication, Lisinopril at your follow up appointment. If your symptoms do not resolve, worsen or becoming concerning for you please return back to ER for further evaluation. OTHER INSTRUCTIONS: Seek medical attention if you have: * temperature above 101 * chest pain or trouble breathing * abdominal pain, nausea, vomiting * diarrhea, dark stools or bloody stools * any unanswered questions or concerns Call 911 if symptoms are severe. Please take good care of yourself. It has been a pleasure taking care of you. Please take care of yourself. If you have any questions regarding your recent hospitalization please contact [facility] and request Katalina Mongeist @ [phone]. Becky Galindo PA-C Pending Studies at Discharge: Yes Studies:: Anaplasma serology pending at discharge Stand-Alone Forms: My [facility], Smoking Cessation Medications and DC Order Prescriptions: New lisinopril 10 mg tablet 10 mg PO DAILY Qty: 14 RF: 0 No Action calcium carbonate-vitamin D3 [Calcium 600 + D(3)] 600 mg(1,500mg) -200 unit Tablet 1 tab PO QAM RF: 0 omeprazole [Prilosec] 10 mg Capsule,Delayed Release(Dr/Ec) 10 mg PO DAILY PRN (Reason: gastric upset) RF: 0 fluticasone propionate [Flonase] 50 mcg/actuation [place],Suspension 2 spray INTRANASAL DAILY PRN (Reason: Allergy Symptoms) RF: 0 Centrum 0.4-162-18 mg Tablet 1 tab PO QAM RF: 0 Krames/Other Patient Handouts: ED Hypertension, New (Begin Treatment) Admission Data Admit Date/Time: 01/25/21 09:26 Attending Provider: Rolanda Velez Admit Provider: Rolanda Velez Primary Care Provider: Oswald Braden Other Providers: Rolanda Velez ; Joel Juarez
[2021-01-25] MEDS ORDERED: LABETALOL HCL IV 5 MG/ML 20ML IV PRN (14:52)
[2021-01-25] MEDS ORDERED: SODIUM CHLORIDE 0.9% 500 ML IV SCH ×2 (15:00→18:35)
[2021-01-25] MEDS ORDERED: POLYETHYLENE (MIRALAX) 17 GM PACK PO PRN (18:35)
[2021-01-25] MEDS ORDERED: ALUMINUM/MAGNESIUM SUSP 30 ML UDC PO PRN (18:35)
[2021-01-25] MEDS ORDERED: MAGNESIUM HYDROXIDE SUSP 30 ML UDC PO PRN (18:35)
[2021-01-25] MEDS ORDERED: FLUTICASONE PROPIONATE NA SPR 16 GM BTL PRN (18:35)
[2021-01-25] MEDS ORDERED: NITROGLYCERIN SL 0.4 MG/TAB TAB SL PRN (18:35)
[2021-01-25] MEDS ORDERED: ONDANSETRON INJ 2 MG/ML 2 ML VIAL IV PRN (18:35)
[2021-01-25] MEDS ORDERED: ACETAMINOPHEN 325 MG TAB PO PRN (18:35)
[2021-01-25] MEDS ORDERED: PANTOprazole 40 MG TAB PO PRN (18:43)
[2021-01-25] MEDS ORDERED: ENOXAPARIN INJ 40 MG/0.4 ML SYR SQ SCH (21:00)
[2021-01-26 00:36] LABS: Appearance Urine Clear (Clear); Bilirubin Urine Negative (Negative); Blood Urine Negative (Negative); Color Urine Yellow; Glucose Urine UA Negative (Negative); Ketones Urine Trace (Negative); Leukocyte Esterase Urine Negative (Negative); Nitrite Urine Negative (Negative); Protein Urine Negative (Negative); Specific Gravity Urine > 1.045 (1.000-1.030); Urobilinogen Urine Negative (Negative)
[2021-01-26 07:27] LABS: Hematocrit (blood only) 40.5 % (37-47); Hemoglobin 13.4 g/dL (12.0-16.0); Mean Corpuscular Hemoglobin 30.7 pg (25-34); Mean Corpuscular Hgb Conc 33.1 g/dL (32-36); Mean Corpuscular Volume 92.9 fL (80-100); Mean Platelet Volume 9.2 fL (7.4-10.4); Platelet Count 157 K/uL (130-400); RDW Coefficient of Variation 13.6 % (11.5-14.5); RDW Standard Deviation 46.5 fL (36.4-46.3); Red Blood Count 4.36 M/uL (4.2-5.4)
[2021-01-26 08:38] LABS: BUN Creatinine Ratio 29.1 (10-20); Calcium 8.9 mg/dl (8.5-10.1); Creatinine Clr Calc Pharmacy 66.3 ml/min; Est GFR (African American) 89.1 ml/min; Est GFR (Non-African American) 76.9 ml/min; Magnesium 2.3 mg/dl (1.8-2.4); Potassium 4.1 mmol/L (3.5-5.1)
[2021-01-26] MEDS ORDERED: CEROVITE ADV FORMULA TAB PO SCH (09:00)
[2021-01-26] MEDS ORDERED: CALCIUM 600MG + VIT D 400 IU TAB PO SCH (09:00)
[2021-01-26] MEDS ORDERED: lisinopril 10 MG TAB PO SCH (09:00)
[2021-01-26 09:36] LABS: Estimated Average Glucose 108 mg/dl; Hemoglobin A1C 5.4 % (4.5-5.6)
--- NOTE | 2021-01-26 10:42 | Cardiology Progress Note ---
Date of Service January 26, 2021 Assessment & Plan (1) Chest pain: (2) Hypertension: Plan: nonischemic exercise stress echocardiogram hypertensive bp response to exercise no cardiac source for discomfort found BP treatment has already been started and I recommend she follow up with PCP to further monitor and treat pt to keep bp diary discharge with lisinopril 10 mg daily, bmp in 1 week no further cardiac testing necessary ok to d/c to home from cardiac standpoint Admission and Anticipated Discharge Date Admission Date: January 25, 2021 Subjective Pt seen and examined, chart reviewed. No complaints. Anxious for discharge. tele reviewed: sinus rhythm without arrhythmia Review of Systems Review of Systems: All systems reviewed & are unremarkable except as noted in HPI & below Physical Exam Physical Exam: Physical Exam: General: Awake, alert and oriented x 3. No acute distress. HEENT: Normocephalic, atraumatic. Pupils equal, round and reactive to light and accommodation. Extraocular muscles are intact. Anicteric sclera. Moist mucous membranes. Neck: No JVD. No bruit. Cardiovascular: Regular. No S-4. Normal S-1 and S-2. No S-3. No murmurs, rubs or gallops. Pulmonary: Clear to auscultation bilaterally. No rales, rhonchi, or wheezing. Abdomen: Bowel sounds x 4, soft. No rebound, guarding or tenderness. No organomegaly. Extremities: No clubbing, cyanosis or edema. +2 pedal pulses bilaterally. Skin: Warm and dry. Results & Data ([facility]) Vital Signs (Past 12 Hours) Vital Signs Temp Pulse Pulse Resp BP Pulse Ox 01/26/21 09:39 116/65 01/26/21 08:01 36.6 C 66 18 123/69 96 01/26/21 08:00 53 L 01/26/21 04:32 36.5 C 67 18 102/55 L 93 01/26/21 01:07 56 L 01/26/21 00:02 36.7 C 57 L 18 112/68 96
--- NOTE | 2021-01-26 11:46 | Discharge Summary ---
Date of Service January 26, 2021 Admission HPI Per Admitting Provider This is a 70-year-old female who has significant past medical history of situational elevated blood pressure, chronic sinusitis, anxiety, diverticulosis with history of right colectomy who presents to ED secondary to chest pain and dyspnea on exertion on and off x2 days. Symptoms initially started on Saturday. She went for a 3.1 mile walk. During the walk she started to feel unwell and fatigued. It required her to sit and rest during her walk which was unusual. She also felt sweaty. At the end of her walk she developed left-sided chest pressure that lasted for a few minutes and resolved with rest. Chest pressure was nonradiating, but was associated with mild shortness of breath and sweating. She denies feeling nauseated. Symptoms resolved but she continued to just feel unwell and her body felt, "tired." Yesterday she saw her PCP and had blood work drawn. Results returned this morning which revealed an elevated troponin T and she was referred to the ER for further evaluation. She states yesterday when at [facility] she was walking up the stairs for lab work and she became extremely short of breath, sweaty and felt like her heart was racing. It was very unusual for her to become short of breath after climbing 1 flight of stairs. She was able to do her gardening yesterday without any difficulty. Currently she feels at her baseline except for overall feeling fatigued. She denies any recent illness and is vaccinated for COVID-19. She denies fever, chills, sweats, lightheadedness, dizziness, syncope, cough, hemoptysis, URI symptoms, nausea, vomiting, abdominal pain. She did have an episode of loose stool yesterday but otherwise denies jessica diarrhea. She denies any prior history of high cholesterol, diabetes or history of heart disease. She did have a stress test in 2019 which was unremarkable. She denies recent travel or known tick/insect bite. She feels she is note in good shape, but does walk 3.1 miles ~ twice weekly. She did states her father was diagnosed with cardiac, "insufficiency," in his late 30s. When he was in his 70s he ended up undergoing triple bypass as well as an abdominal aortic aneurysm repair. He was a smoker. She denies any tobacco abuse, but admits to passive smoking exposure. She admits to very minimal alcohol use. 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 In ED patient made hemodynamically stable although her blood pressure was elevated. During my evaluation her blood pressure was 152/81. Her CBC and CMP was generally unremarkable except for mild lymphopenia, low potassium at 3.8, elevated BUN at 26 and glucose at 109. Admission Exam Per Admitting Provider Constitutional: WD/WN, vitals as above, NAD, sitting up in bed, pleasant, conversing easily Head: Normocephalic, Atraumatic Eyes: PERRL, conjunctivae normal, anicteric sclerae ENMT: external ear and nose normal, oropharynx normal Neck: trachea midline, no thyromegaly normal visual inspection, no carotid bruits Respiratory: normal respiratory effort, lungs clear to auscultation, no wheeze, rales, rhonchi. Normal insp/exp effort, no accessory muscle use Cardiovascular: RRR, no murmur, no edema Vessels: no JVD or carotid bruit Chest: normal inspection of chest Abdomen: normal bowel sounds, soft, nontender, no hepatosplenomegaly Musculoskeletal: no cyanosis or clubbing, extremities motor strength 5/5 Skin: no rashes, warm and dry normal turgor Neurologic: PERRL, EOMI, accommodation nl, no face palsy, no dysarthria, CN's II-XI intact bilaterally and moves all extremities Psychiatric: A+Ox3, euthymic affect Lymphatic: no cervical or axillary lymphadenopathy : deferred Principal Diagnosis chest pain Discharge Exam General Appearance: WD/WN, vitals as above, NAD, sitting up in bed, pleasant, conversing easily Head: normocephalic, atraumatic Eyes: normal inspection, PERRL ENT: external ear and nose normal Neck: normal visual inspection Respiratory: normal respiratory effort, lungs clear to auscultation, no wheeze, rales, rhonchi Cardiovascular: regular rate, rhythm, no murmur, normal peripheral pulses, no BLE edema Chest: normal inspection of chest Abdomen/GI: normal bowel sounds, soft, nontender Extremities/Musculoskeletal: no cyanosis or clubbing, extremities motor strength 5/5 Neurologic: PERRL, CN's II-XI intact bilaterally and moves all extremities Psychiatric: A+Ox3, euthymic affect Skin: no rashes, normal color, warm/dry Discharge Data Allergies Allergy/AdvReac Type Severity Reaction Status Date / Time bacitracin Allergy Intermediate SEVERE Verified 01/25/21 08:51 SWELLING neomycin Allergy Intermediate SEVERE Verified 01/25/21 08:51 SWELLING polymyxin B Allergy Intermediate SEVERE Verified 01/25/21 08:51 SWELLING aspirin Allergy Unknown TINGLES Unverified 01/25/21 08:51 ibuprofen Allergy Unknown TINGLES Unverified 01/25/21 08:51 Consultations 01/25/21 09:14 ED Decision to Admit Stat 01/25/21 10:07 Consult Cardiology Routine Ordered Studies 01/25/21 11:32 CT angio chest PE protocol Stat 01/25/21 11:41 US venous doppler LE BI Routine Hospital Course (1) Left chest pressure: (2) GARCIA (dyspnea on exertion): (3) Elevated blood pressure reading: (4) Hypokalemia: This is a 70-year-old female who has significant past medical history of situational elevated blood pressure, chronic sinusitis, anxiety, diverticulosis with history of right colectomy who presents to ED secondary to chest pain and dyspnea on exertion on and off x2 days. Patient with elevated BP, initially 152/81. Her blood pressure has been variable at home running from 130 systolic to 190 systolic. Also with low potassium, which was replaced. Cardiology was consulted for stress test evaluation, which was negative for inducible ischemia. No further cardiac testing necessary per cardiology service. CTA chest and BLE dopplers performed due to elevated d-dimer but no evidence of DVT/PE. Lyme serology negative. Anaplasma DNA pending. Blood pressure was elevated during admission. Patient was started on lisinopril 10mg daily and instructed to follow up with PCP for continued monitoring. Instructed to follow up for repeat BMP in 1 week to monitor renal function. Discussed possibility that GERD or anxiety contributing to chest discomfort. Plans to trial Prilosec PRN to see if acid reflux contributing factor. Also with history of anxiety - contemplating starting medication previously prescribed. Advised to follow up with Dr. Braden for this as well. Patient hemodynamically stable at time of discharge. Total Time Total Time Spent Total Time Spent (In Minutes): 35 Discharge Plan Discharge Items Patient Disposition: Home - Self-Care Reason For Visit: chest pain Discharge Diagnosis: chest pain, high blood pressure Condition on Discharge: Good Activity: As commented below Activity Comment: Wait until after follow up with PCP to resume physical activity Lifting: Wait until after follow-up appointment Bathing: No limitations Exercise/Sports: Wait until after follow-up appointment Driving/Machine Use: No limitations Non-emergency contact: Primary Care Provider Call non-emergency contact if: you have any medication questions, your symptoms worsen, your pain is not controlled, your pain is worsening, your pain is unusual for you, your pain is concerning for you and you have a fever Follow-up/Referrals: Oswald Braden DO [Primary Care Provider] - 01/30/21 11:20 am (Date & Time 01/30/2021 11:20 AM Provider Oswald Braden DO [facility] ) Diet: Regular Ambulatory Orders: Basic Metabolic Panel (Routine) Timeframe: 1 Week Location: Determined by Patient Ordered By: Zakiya Good Attending Provider Instructions: MEDICATION CHANGES: You were started on medication for high blood pressure *Lisinopril 10mg by mouth once daily. Please monitor BP at home and HOLD if systolic blood pressure (top number) is 100 or less. SUMMARY OF TEST RESULTS/Hospitalization: You were admitted to hospital secondary to shortness of breath, fatigue, chest pressure and sweating. You underwent a stress test by our cardiology and it was negative. Your blood pressure was high during your stay as well as during your stress test. You were started on a medication to help lower your blood pressure, Lisinopril. Your potassium was low and this was replaced. A CTA scan of your chest was performed as well as ultrasounds of your legs and there is no evidence of blood clot. You were tested for Lyme disease which was negative. There was no evidence of arrhythmia on telemetry overnight. We discussed a trial of Prilosec to see if symptoms are related to GERD. Please also discuss anxiety at upcoming appointment with Dr. Braden and start breathing exercises we discussed. PENDING TEST RESULTS: Anaplasma blood test for tick borne illness is pending at discharge RECOMMENDATIONS FOR FOLLOW-UP: Please follow up with your Primary Care Provider on 01/30/21 @ 11:20 a.m. Please arrive 15 minutes before your scheduled appointment. Keep a log of your blood pressure & take at least twice daily. Bring this with you to your Primary Care Provider appointment. Please check your BP at home and keep a log to show Dr. Braden. Please HOLD medication if systolic BP 100 or less. You will need a repeat BMP at your follow up appointment next week due to starting a new medication, lisinopril. This will recheck your kidney function and potassium. You will need a refill prescription for your new blood pressure medication, Lisinopril at your follow up appointment. If your symptoms do not resolve, worsen or becoming concerning for you please return back to ER for further evaluation. OTHER INSTRUCTIONS: Seek medical attention if you have: * temperature above 101 * chest pain or trouble breathing * abdominal pain, nausea, vomiting * diarrhea, dark stools or bloody stools * any unanswered questions or concerns Call 911 if symptoms are severe. Please take good care of yourself. It has been a pleasure taking care of you. Please take care of yourself. If you have any questions regarding your recent hospitalization please contact [facility] and request Katalina Mongeist @ [phone]. Zakiya Null PA-C Pending Studies at Discharge: Yes Studies:: Anaplasma serology pending at discharge Stand-Alone Forms: [facility], Smoking Cessation Medications and DC Order Prescriptions: New lisinopril 10 mg tablet 10 mg PO DAILY Qty: 14 RF: 0 Continued calcium carbonate-vitamin D3 [Calcium 600 + D(3)] 600 mg(1,500mg) -200 unit Tablet 1 tab PO QAM RF: 0 omeprazole 10 mg Capsule,Delayed Release(Dr/Ec) 10 mg PO DAILY PRN (Reason: gastric upset) RF: 0 fluticasone propionate 50 mcg/actuation Hale,Suspension 2 spray INTRANASAL DAILY PRN (Reason: Allergy Symptoms) RF: 0 [id number]-Dn-dvqioie-lutein 0.4-162-18 mg Tablet 1 tab PO QAM RF: 0 Discharge Orders: Discharge Order (Routine); Ordered 01/26/21 Ordered By: Zakiya Carbone/Other Patient Handouts: ED Hypertension, New (Begin Treatment) Admission Data Admit Date/Time: 01/25/21 09:26 Attending Provider: Rolanda Velez Admit Provider: Rolanda Velez Primary Care Provider: Oswald Braden Other Providers: Joel Juarez ; Rolanda Velez Other Interventions: Discharge Summary Assessment (RN) Last Done: 01/26/21 12:49 Supervising Physician Co-Signing Physician Notes 70-year-old female who has significant past medical history of situational elevated blood pressure, chronic sinusitis, anxiety, diverticulosis with history of right colectomy who presents to ED 01/25 secondary to chest pain and dyspnea on exertion on and off x2 days. Patient had elevated D-dimer on presentation. Underwent CTA chest and stress echo. Both negative. Was put on gentle normal saline hydration while inpatient [renal protective for contrast exposure] with as needed blood pressure medication. Patient was also found to have elevated blood pressure at presentation. Patient started on lisinopril. Patient advised to follow-up with PCP for blood pressure medication readjustment as appropriate. Patient advised to get BMP done on Saturday. Upon examination: GENERAL: Alert and oriented x3. NAD, on RA. HEENT: No pallor, no icterus. Pupils equal, round and reactive to light. Oral mucosa moist. NECK: No JVD, no neck masses. HEART: S1 and S2 heard. Regular rate and rhythm. Systolic murmur over the aortic area. no gallop. RESPIRATORY SYSTEM: Normal AP diameter. No accessory muscle use. No wheezing, no crackles. ABDOMEN: Soft, bowel sounds present, nontender, no distention. CENTRAL NERVOUS SYSTEM: Alert and oriented x3. No facial droop. Speech is clear. Obeys simple commands. Moves extremities. EXTREMITIES: No edema, no erythema seen. I have seen and examined the patient and have discussed the case with the provider above. I agree with the assessment and plan as stated.
--- NOTE | 2021-01-26 12:10 | Electrocardiogram Report ---
Test Reason : Blood Pressure : / mmHG Vent. Rate : 078 BPM Atrial Rate : 078 BPM P-R Int : 142 ms QRS Dur : 084 ms QT Int : 368 ms P-R-T Axes : 076 074 047 degrees QTc Int : 419 ms Sinus rhythm with Premature atrial complexes Otherwise normal ECG When compared with ECG of 03-OCT-2015 12:28, Premature atrial complexes are now Present Confirmed by Carl Ralph ([id number]) on 01/26/2021 12:09:33 PM Referred By: Confirmed By:Carl Ralph
== END 2021-01-26 13:20 | disposition home or self-care (01) ==
LOC: ED 07:16 → EDINP 07:16 → 2S 17:54